=== PATIENT | female | born 1965 ===

== ENCOUNTER 2021-01-31 08:23 | Day surgery (SDC) | payer OTHER ==
[2021-01-31] MEDS ORDERED: PERCOCET 5-3251 EACH PO (13:41)
== END 2021-01-31 16:50 | disposition home or self-care (01) ==
LOC: CIR.AMB 08:23
PROVIDERS: ATTEND Surgery
DX: C73 Malignant neoplasm of thyroid gland (principal); Z20.822 Contact with and (suspected) exposure to COVID-19

== ENCOUNTER 2022-03-18 05:59 | Day surgery (SDC) | payer OTHER ==
[~2022-03-18] VITALS: Ht 162.6 cm; Wt 205.0 kg
[~2022-03-18 05:59] MED LIST: PERCOCET 5-3251 EACH PO; SYNTHROID75 MCG
[2022-03-18] MEDS ORDERED: IBU800 MG PO (09:25)
== END 2022-03-18 13:50 | disposition home or self-care (01) ==
LOC: CIR.AMB 05:59
PROVIDERS: ATTEND Obstetrics & Gynecology Gynecology
DX: R87.613 High grade squamous intraepithelial lesion on cytologic smear of cervix (HGSIL) (principal); N72 Inflammatory disease of cervix uteri; E03.9 Hypothyroidism, unspecified; Z79.890 Hormone replacement therapy; I10 Essential (primary) hypertension; E16.2 Hypoglycemia, unspecified; R00.1 Bradycardia, unspecified; Z20.822 Contact with and (suspected) exposure to COVID-19